=== PATIENT | female | born 1980 | race Caucasian/White ===

== ENCOUNTER 2017-09-11 08:51 | Emergency (ER) | payer SELFPAY ==
[~2017-09-11] VITALS: Ht 162.6 cm; Wt 90.5 kg
[~2017-09-11 08:51] MED LIST: TRAM-10 PO
[2017-09-11 08:57] VITALS: TEMP 36.6; Ht 162.6 cm; Wt 90.5 kg
[2017-09-11] MEDS ORDERED: CYCLOBENZAPRINE HCL 10 MG TAB PO STA (09:43)
[2017-09-11] MEDS ORDERED: KETOROLAC TROMETHAMINE 60 MG/2 ML VIAL IM STA (09:43)
[2017-09-11 09:50] VITALS: BP 152/98; PULSE 73; O2SAT 97
[2017-09-11] MEDS ORDERED: TRAM-10 PO (09:52)
[2017-09-11] MEDS ORDERED: CYCL10TA6 PO (09:52)
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
== END 2017-09-11 10:02 | disposition home or self-care (01) ==
LOC: C.EDB 08:52 → C.EDA 10:02
DX: M54.5 Low back pain (principal); F17.200 Nicotine dependence, unspecified, uncomplicated; Z87.442 Personal history of urinary calculi